=== PATIENT | male | born 1955 | race Caucasian/White ===

== ENCOUNTER 2016-12-26 08:55 | Outpatient (CLI) | payer BC ==
[2016-12-26] MEDS ORDERED: BARIUM SULFATE 135 ML SUSP.RECON (E-Z-HD) PO ONE (09:50)
== END 2016-12-26 19:09 | disposition home or self-care (01) ==
LOC: SRD 08:55
PROVIDERS: ATTEND Otolaryngology Plastic Surgery within the Head & Neck
DX: K22.4 Dyskinesia of esophagus (principal)
CPT/HCPCS: 74220-TC